=== PATIENT | female | born 1990 | race African-American/Black ===

== ENCOUNTER → 2019-05-07 14:07 | Emergency (ER) | payer BC ==
[~2019-05-07 14:07] MED LIST: LIDOCAINE/EPI/TETRACAINE TOPICAL GEL 3 ML. TP ONE
[2019-05-07 14:50] VITALS: BP 151/86
--- NOTE | 2019-05-07 14:55 | PHYS DOC ---
Adult General Chief Complaint Chief Complaint: mouth sores HPI HPI 29-year-old female presents with mouth sores. The patient was eating a homemade chicken and which with some hot sauce on it 90 minutes prior to arrival. She does not typically eat hot sauce. Soon afterward, she felt like her mouth felt funny. She had her looked in her mouth and he saw some white spots on the roof of the right side of her mouth. The patient was concerned this could be an allergic reaction. She has not been allergic to things in the past but again doesn't usually eat hot cells. She denies urticaria, pruritus, or any difficulty breathing or swallowing. She has felt a little fatigued and under the weather with some nasal drainage for last several days. No fever at home. She denies any other complaints at this time. Review of Systems Review of Systems Constitutional: Denies fever or chills [] Eyes: Denies change in visual acuity, redness, or eye pain [] HENT: Denies nasal congestion or sore throat. Spots on the soft palate [] Respiratory: Denies cough or shortness of breath [] Cardiovascular: No additional information not addressed in HPI [] GI: Denies abdominal pain, nausea, vomiting, bloody stools or diarrhea [] : Denies dysuria or hematuria [] Musculoskeletal: Denies back pain or joint pain [] Integument: Denies rash or skin lesions [] Neurologic: Denies headache, focal weakness or sensory changes [] Endocrine: Denies polyuria or polydipsia [] All other systems were reviewed and found to be within normal limits, except as documented in this note. Physical Exam Physical Exam Constitutional: Well developed, well nourished, no acute distress, non-toxic appearance. [] HENT: Normocephalic, atraumatic, bilateral external ears normal, oropharynx mildly erythematous with small pustules on the right side of the soft palate, no posterior pharyngeal swelling. [] Eyes: PERRLA, EOMI, conjunctiva normal, no discharge. [] Neck: Normal range of motion, no tenderness, supple, no stridor. [] Cardiovascular:Heart rate regular rhythm, no murmur [] Lungs & Thorax: Bilateral breath sounds clear to auscultation [] Abdomen: Bowel sounds normal, soft, no tenderness, no masses, no pulsatile masses. [] Skin: Warm, dry, no erythema, no rash. [] Back: No tenderness, no CVA tenderness. [] Extremities: No tenderness, no cyanosis, no clubbing, ROM intact, no edema. [] Neurologic: Alert and oriented X 3, normal motor function, normal sensory function, no focal deficits noted. [] Psychologic: Affect normal, judgement normal, mood normal. [] Current Patient Data Vital Signs Vital Signs Date Time Temp Pulse Resp B/P (MAP) Pulse Ox O2 Delivery O2 Flow Rate FiO2 05/07/19 14:44 97.6 109 151/86 (107) 100 Room Air EKG EKG [] Radiology/Procedures Radiology/Procedures [] Course & Med Decision Making Course & Med Decision Making Pertinent Labs and Imaging studies reviewed. (See chart for details) The patient has buccal spots that appear to be consistent with hand-foot mouth. She does not have any spots on her hands or feet. This could also be viral exa nthem from some other virus. It does not appear to be allergic reaction. I have given the patient supportive care structures. If her condition worsens in any way she will come back to the emergency room. She is stable for discharge at this time. [] Dragon Disclaimer Dragon Disclaimer This electronic medical record was generated, in whole or in part, using a voice recognition dictation system. Departure Departure: Impression: Primary Impression: Hand, foot and mouth disease Disposition: 01 HOME, SELF-CARE Condition: STABLE Referrals: PCP,NO (PCP) Patient Instructions: Hand, Foot, and Mouth Disease, [id number] ULISES MENESES DO May 07, 2019 14:55
== END | disposition home or self-care (01) ==
LOC: ER 14:07
DX: B08.4 Enteroviral vesicular stomatitis with exanthem (principal)
CPT/HCPCS: 99281